=== PATIENT | male | born 1945 | race Caucasian/White ===

== ENCOUNTER → 2016-11-06 | Outpatient (CLI) | payer OTHER ==
[~2016-11-06] MED LIST: CHLORDIAZEPOXIDE PO; ESCITALOPRAM OX10 MG PO; FLOVENT DISKUS1 DIS2 IH; MELOXICAM7.5 MG PO; PERCOCET 5/31 TABLET PO; PROVENTIL HFA6.7 GM IH; RABEPRAZOLE SOD20 MG PO; VITAMIN D33000 UNIT PO; WELCHOL625 MG PO; ZOFRAN4 MG PO
== END | disposition home or self-care (01) ==
LOC: RES 10-25 09:00
DX: R05 Cough (principal)
CPT/HCPCS: 94060